=== PATIENT | female | born 1950 | race Caucasian/White ===

== ENCOUNTER 2018-01-11 09:04 | Emergency (ER) | payer MEDICARE, BC ==
[2018-01-11] MEDS ORDERED: predniSONE 20 MG TAB ONE (09:35)
== END 2018-01-11 09:35 | disposition home or self-care (01) ==
LOC: BURERS 09:04
DX: R22.0 Localized swelling, mass and lump, head (principal); T45.3X5A Adverse effect of enzymes, initial encounter; E78.5 Hyperlipidemia, unspecified; I10 Essential (primary) hypertension; F32.9 Major depressive disorder, single episode, unspecified; Z79.899 Other long term (current) drug therapy
CPT/HCPCS: 99283; J7506

== ENCOUNTER 2021-04-26 14:00 | Emergency (ER) | payer MEDICARE, BC ==
[2021-04-26] MEDS ORDERED: predniSONE 20 MG TAB ONE (14:40)
== END 2021-04-26 14:53 | disposition home or self-care (01) ==
LOC: BURERS 14:00
DX: T63.481A Toxic effect of venom of other arthropod, accidental (unintentional), initial encounter (principal); E78.5 Hyperlipidemia, unspecified; E78.00 Pure hypercholesterolemia, unspecified; I10 Essential (primary) hypertension; Z79.899 Other long term (current) drug therapy
CPT/HCPCS: 99283; J7512

== ENCOUNTER 2022-12-22 14:48 | Emergency (ER) | payer MEDICARE, BC ==
[~2022-12-22 14:48] MED LIST: Iopamidol 370 76% 100 ML VIAL ONE
[2022-12-22 15:32] LABS: Hemoglobin 13.8 g/dL (12.0-16.0); Mean Corpuscular HGB CONC 35.2 g/dL (32.0-36.0); Mean Corpuscular Hemoglobin 31.8 pg (27.0-31.0); Mean Corpuscular Volume 90.4 fl (78.0-98.0); Mean Platelet Volume 9.2 fL (7.4-10.4); Platelet Count 152 10x3/uL (130-400); RBC Distribution Width 11.8 % (11.5-14.5); Red Blood Cell (RBC) Count 4.34 mill/uL (4.20-5.40); White Blood Cell (WBC) Count 24.9 10x3/uL (4.8-10.8)
[2022-12-22 15:46] LABS: ALT (SGPT) 43 U/L (8-55); AST (SGOT) 22 U/L (5-34); Albumin 3.5 g/dL (3.4-4.8); Alkaline Phosphatase 128 U/L (40-110); Anion Gap 15 mmol/L (10-20); BUN (Urea Nitrogen) 22 mg/dL (9.8-20.1); Bilirubin, Total 1.2 mg/dL (0.2-1.2); Calc. Creatinine Clearance 0 mL/min (70-130); Calcium 8.9 mg/dL (7.8-10.44); Carbon Dioxide 24 mmol/L (23-31); Chloride 97 mmol/L (98-107); Estimated GFR 58; Globulin 3.3 g/dL (2.4-3.5); Glucose 135 mg/dL (83-110); Potassium 3.6 mmol/L (3.5-5.1); Protein, Total 6.8 g/dL (5.8-8.1); Sodium 132 mmol/L (136-145)
[2022-12-22 15:48] LABS: Band 22 % (5-11); Lymphocytes 8 % (21-51); MDiff Complete? YES; Monocytes 7 % (0-10); Neutrophil 61 % (42-75); Reactive Lymphocytes 1 % (0-10)
[2022-12-22 15:56] LABS: Bilirubin Small (Negative); Blood, Urine Large (Negative); Clarity Cloudy (Clear); Glucose, Urine (Dipstick) Negative (Negative); Ketone, Urine 40 mg/dL (Negative); Leukocyte Negative (Negative); Nitrite Positive (Negative); Protein, Urine (Dipstick) > or equal to 300 mg/dL (Neg-Trace); Specific Gravity, Urine 1.025 (1.005-1.030)
[2022-12-22 16:01] LABS: RBC/HPF Greater than 50 HPF (0-3)
[2022-12-22 16:02] LABS: Bacteria/HPF 3+ HPF (None Seen)
[2022-12-22] MEDS ORDERED: Sodium Chloride 0.9% 100 ML ONE (16:50)
[2022-12-22] MEDS ORDERED: cefTRIAXone\\ROCEPHIN 1 GM VIAL ONE (16:50)
== END 2022-12-22 17:30 | disposition home or self-care (01) ==
LOC: BURERS 14:48
DX: N10 Acute pyelonephritis (principal); E78.00 Pure hypercholesterolemia, unspecified; I10 Essential (primary) hypertension; Z79.899 Other long term (current) drug therapy
CPT/HCPCS: 74177; 80053; 81003; 81015; 83605; 84484; 85025; 87077; 87086; 87186; 87804; 93005; 96361; 96365; J0696; J3490; Q9967

== ENCOUNTER 2024-03-21 20:23 | Emergency (ER) | payer MEDICARE, BC ==
[2024-03-21] MEDS ORDERED: Dexamethasone 10 MG/ML VIAL ONE (21:41)
[2024-03-21] MEDS ORDERED: Cephalexin 250 MG CAP ONE (21:41)
== END 2024-03-21 21:47 | disposition home or self-care (01) ==
LOC: BURERS 20:23
DX: T78.40XA Allergy, unspecified, initial encounter (principal); I10 Essential (primary) hypertension
CPT/HCPCS: 99283; J1100